=== PATIENT | female | born 1960 | race Hispanic/Latino ===

== ENCOUNTER 2019-08-11 15:04 | Emergency (ER) | payer OTHER ==
[~2019-08-11] VITALS: Ht 157.5 cm; Wt 84.4 kg
--- OUTSIDE RECORDS SUMMARY | 2019-08-11 15:08 | XMS REPORT | Clinical Summary ---
Author Author [facility] Address Unknown Phone Unavailable Care Team Providers Care Coordinator Of Placement Name Role Phone Jonnie Irvin PCP Allergies No Known Allergies Medications End Date Status Medication Sig Dispensed Refills Start Date Active sitaGLIPtin-metFORMIN Take 1 tablet 0 (JANUMET) 50-1,000 mg per by mouth 2 tablet (two) times daily with breakfast and dinner. Active lisinopril Take 10 mg by 0 (PRINIVIL,ZESTRIL) 10 MG mouth daily. tablet Active ezetimibe-simvastatin Take 1 tablet 0 (VYTORIN) 10-10 mg per by mouth tablet nightly. Active liraglutide 0.6 mg/0.1 mL Inject 0 (18 mg/3 mL) PnIj subcutaneousl y. Active hydrochlorothiazide Take 12.5 mg 0 (MICROZIDE) 12.5 mg by mouth capsule every morning. Active Problems Problem Noted Date Abdominal pain 09/14/2016 Diarrhea 09/14/2016 Diabetes mellitus, type 2 09/14/2016 Hyperlipidemia 09/14/2016 Atypical chest pain 09/14/2016 Immunizations Name Dates Previously Given Next Due Influenza Three-TIV PF 5+ 09/14/2016 YR Family History Medical History Relation Name Comments Diabetes Father Hypertension Father Kidney disease Father Relation Name Status Comments Father Social History Date Tobacco Use Types Packs/Day Years Used Current Some Day Smoker Alcohol Use Drinks/Week oz/Week Comments Yes 3 Glasses of 1.8 States twice a month socially wine Sex Assigned at Date Recorded Not on file Industry Job Start Date Occupation Not on file Not on file Not on file Travel End Travel History Travel Start No recent travel history available. Last Filed Vital Signs Not on file Plan of Treatment Not on file Results Not on fileafter 08/10/2018 Insurance Payer Benefit Subscriber ID Type Phone Address Plan / Group CIGNA - MGD CARE CIGNA xxxxxxxxxxx HMO/POS HMO/POS/OP EN ACCESS Advance Directives For more information, please contact: [address] [address] Date Inactivated Comments Code Status Date Activated 09/16/2016 1:05 AM Full Code 09/14/2016 3:17 AM This code status was determined by: Patient
--- OUTSIDE RECORDS SUMMARY | 2019-08-11 15:08 | XMS REPORT | Clinical Summary ---
Author Author [facility] Address Unknown Phone Unavailable Care Team Providers Care Welding Technician Name Role Phone Jonnie Irvin MD PCP Allergies No Known Allergies Medications End Date Status Medication Sig Dispensed Refills Start Date Active JANUMET 50-1,000 mg per Take 1 tablet 0 tablet by mouth 2 8 (two) times a day with meals. Active hydroCHLOROthiazide Take 12.5 mg 0 (MICROZIDE) 12.5 mg by mouth 8 capsule every morning. Active liraglutide (VICTOZA) 0.6 Inject 1.2 mg 0 mg/0.1 mL (18 mg/3 mL) under the pen injector skin nightly. Active ezetimibe/simvastatin Take 1 tablet 0 (VYTORIN 10-20 ORAL) by mouth daily. 01/03/2019 Discontinued (Med List Cleanup) meloxicam (MOBIC) 15 mg Take 1 tablet 30 tablet 11 tablet (15 mg total) 8 by mouth daily. 02/02/2019 Discontinued (Med List Cleanup) traMADol (ULTRAM) 50 mg Take 1 tablet 15 tablet 0 tablet (50 mg total) 9 by mouth every 6 (six) hours as needed for moderate pain for up to 30 days. Take with food 01/27/2019 methylPREDNISolone Take 1 tablet 21 tablet 0 (MEDROL DOSEPAK) 4 mg (4 mg total) 9 tablet by mouth See Admin Instructions for 5 days. Use as directed by package instructions Active Problems Problem Noted Date Contusion of right hand 03/14/2019 Aftercare following surgery 02/02/2019 Trigger finger, left index finger 07/10/2018 Trigger finger, right ring finger 07/10/2018 Carpal tunnel syndrome of right wrist 07/10/2018 Encounters Care Team Description Date Type Specialty Siff, River E., MD Trigger finger, right ring finger (Primary Dx); Carpal tunnel syndrome of right wrist; Trigger finger, left index finger 04/19/2019 Office Visit Orthopedic Surgery River Fam MD Carpal tunnel syndrome of right wrist (Primary Dx); Trigger finger, right ring finger; Aftercare following surgery; Contusion of right hand, initial encounter 03/15/2019 Office Visit Orthopedic Surgery Madeline Argueta PA Aftercare (Primary Dx); Trigger finger, right ring finger; Carpal tunnel syndrome of right wrist 02/09/2019 Office Visit Orthopedic Surgery River Fam MD Trigger finger, left index finger (Primary Dx); Carpal tunnel syndrome of right wrist; Trigger finger, right ring finger; Aftercare following surgery 02/02/2019 Office Visit Orthopedic Surgery Joselyn Verduzco MA 01/22/2019 Telephone Orthopedic Surgery Vincenzo Bradshaw MD Jatzlau, Amybeth, APRN 01/19/2019 Anesthesia Orthopedic Surgery Event River Fam MD RELEASE, CARPAL TUNNEL 01/19/2019 Surgery Orthopedic Surgery River Fam MD 01/19/2019 Hospital Orthopedic Surgery Encounter Madeline Argueta PA Trigger finger, right ring finger (Primary Dx); Carpal tunnel syndrome of right wrist 01/18/2019 Orders Only Orthopedic Surgery River Fam MD Preop testing (Primary Dx) 01/03/2019 Pre-Admit Pre-Admission Testing Testing Appointment River Fam MD Trigger finger, right ring finger (Primary Dx); Trigger finger, left index finger; Carpal tunnel syndrome of right wrist 01/03/2019 Office Visit Orthopedic Surgery Madiha Young RN Bilateral carpal tunnel syndrome (Primary Dx) 12/11/2018 Telephone Orthopedic Surgery after 08/10/2018 Family History Medical History Relation Name Comments No Known Problems Father No Known Problems Mother Relation Name Status Comments Father Mother Social History Date Tobacco Use Types Packs/Day Years Used Never Smoker Smokeless Tobacco: Never Used Drinks/Week oz/Week Comments Alcohol Use occasionally Yes Sex Assigned at Date Recorded Not on file Industry Job Start Date Occupation Not on file Not on file Not on file Travel End Travel History Travel Start No recent travel history available. Last Filed Vital Signs Reading Time Taken Comments Vital Sign 113/67 01/19/2019 11:00 AM TECHNICAL ADJUSTER Blood Pressure 97 01/19/2019 11:00 AM TECHNICAL ADJUSTER Pulse 36.9 C (98.4 F) 01/19/2019 10:20 AM TECHNICAL ADJUSTER Temperature 25 01/19/2019 11:00 AM TECHNICAL ADJUSTER Respiratory Rate 97% 01/19/2019 11:00 AM TECHNICAL ADJUSTER Oxygen Saturation - - Inhaled Oxygen Concentration 86.9 kg (191 lb 8 oz) 01/19/2019 8:21 AM TECHNICAL ADJUSTER Weight 157.5 cm (5' 2") 01/19/2019 8:21 AM TECHNICAL ADJUSTER Height 35.03 01/19/2019 8:21 AM TECHNICAL ADJUSTER Body Mass Index Plan of Treatment Health Maintenance Due Date Last Done Comments CERVICAL CANCER SCREENING 1981 BREAST CANCER SCREENING 2010 COLONOSCOPY SCREENING 2010 SHINGLES VACCINES (#1) 2010 INFLUENZA VACCINE 06/14/2019 Procedures Comments Procedure Name Priority Date/Time Associated Diagnosis AL INJECT TENDON Routine 02/02/2019 Trigger finger, left SHEATH/LIGAMENT 1:30 PM CDT index finger RELEASE, TRIGGER FINGER 01/19/2019 Trigger finger, right 9:43 AM TECHNICAL ADJUSTER ring finger Carpal tunnel syndrome of right wrist Case Notes "NAME ALERT" Special Needs "NAME ALERT" RELEASE, CARPAL TUNNEL 01/19/2019 Trigger finger, right 9:43 AM TECHNICAL ADJUSTER ring finger Carpal tunnel syndrome of right wrist Case Notes "NAME ALERT" Special Needs "NAME ALERT" POC GLUCOSE Routine 01/19/2019 9:10 AM TECHNICAL ADJUSTER ECG PRE/POST OP Routine 01/03/2019 Preop testing 3:33 PM TECHNICAL ADJUSTER ESTIMATED GFR Routine 01/03/2019 3:28 PM TECHNICAL ADJUSTER BASIC METABOLIC PANEL Routine 01/03/2019 Preop testing 3:28 PM TECHNICAL ADJUSTER EMG Routine 12/28/2018 Bilateral carpal tunnel 2:17 PM TECHNICAL ADJUSTER syndrome after 08/10/2018 Results * Hand/Upper Extremity Injection/Arthrocentesis: L index finger, L index A1 (02/02/2019 1:30 PM CDT) [facility]06[facility]2019 11:52 AM Hand/Upper Extremity Injection/Arthrocentesis: L index finger, L index A1 Date/Time: 02/02/2019 2:13 PM Consent given by: patient Site marked: site marked Timeout: Immediately prior to procedure a time out was called to verify the correct patient, procedure, equipment, print support specialist and site/side marked as required Supporting Documentation Indications: pain and therapeutic Procedure Details Condition: trigger finger Site: L index finger Location: - L index A1 Preparation: Patient was prepped and draped in the usual sterile fashion Right side: Needle size: 27 G Left side: Needle size: 27 G Approach: anterior Left index finger medications administered: 6 mg betamethasone acetate & sodium phosphate 6 mg/mL; 1 mL lidocaine 10 mg/mL (1 %) Patient tolerance: patient tolerated the procedure well with no immediate complications Injection Type: tendon sheath Platelet Rich Plasma Used: no PRP Used Fluoroscopic Needle Guidance Used: no fluoroscopic needle guidance * POC glucose (01/19/2019 9:10 AM TECHNICAL ADJUSTER) POC glucose 128 (H) 65 - 99 mg/dL [facility] Comment: [facility] Notified RN HOSPITAL Meter ID: [id number] Diesel Powerplant Mechanic Helper: Mahad Grimm Specimen Performing Organization Address City/State/[facility] Phone Number [facility] DEPART[facility] OF [address] [place] [address] PATHOLOGY AND GENOMIC MEDICINE [facility] [address] [place] [address] * ECG Pre/Post Op (01/03/2019 3:33 PM TECHNICAL ADJUSTER) Ventricular 83 [facility] rate Atrial rate 83 [facility] AL interval 160 [facility] QRSD interval 90 [facility] QT interval 406 [facility] QTC interval 477 [facility] P axis 1 46 [facility] QRS axis 1 -10 [facility] T wave axis 39 [facility] EKG impression Normal sinus rhythm-Possible [facility] Inferior infarct (cited on or before 13-JUN-2012)-Cannot rule out Anterior infarct as cited before-Abnormal ECG-In automated comparison with ECG of 28-DEC-2012 13:06,-No significant change was found- Specimen Narrative Performed At Performing Organization Address City/State/Zipcode Phone Number [facility] [address] [place] [address] * Estimated GFR (01/03/2019 3:28 PM TECHNICAL ADJUSTER) Pathologist [facility] Estimated GFR >=90 mL/min/1.73 m2 [facility] Comment: [facility] rpretation G1 >=90 Normal or high G2 60-89Mildly decreased [id number] Mildly to moderately decreased [id number] Moderately to severely decreased G4 15-29Severely decreased G5 <15Kidney failure The eGFR was calculated using the Chronic Kidney Disease Epidemiology Collaboration (CKD-EPI) equation. Interpretation is based on recommendations of the National Kidney Foundation-Kidney Disease Outcomes Quality Initiative (NKF-KDOQI) published in 2014. Specimen Plasma specimen Performing Organization Address [facility] Phone Number [facility] [place] [address] PATHOLOGY AND GENOMIC MEDICINE [address] * Basic metabolic panel (01/03/2019 3:28 PM TECHNICAL ADJUSTER) [facility] Sodium 142 135 - 148 mEq/L [facility] Potassium 3.6 3.5 - 5.0 mEq/L [facility] Chloride 100 98 - 112 mEq/L [facility] CO2 26 24 - 31 mEq/L [facility] Anion gap 16@ANIO (H) 7 - 15 mEq/L [facility] BUN 10 6 - 20 mg/dL [facility] Creatinine 0.67 0.50 - 0.90 mg/dL [facility] Glucose 180 (H) 65 - 99 mg/dL [facility] Calcium 9.8 8.3 - 10.2 mg/dL [facility] Specimen Plasma specimen Performing Organization Address City/[facility]/Zipcode Phone Number [facility] DEPARTMENT OF [address] [place] [address] PATHOLOGY AND GENOMIC MEDICINE [address] * EMG general request (12/28/2018 2:17 PM TECHNICAL ADJUSTER) Impressions Performed At The patient comes in with bilateral hand pain and a history of bilateral carpal tunnel decompression.She comes in for an EMG study of both arms 1) Motor latencies, amplitudes and velocities are normal with decreased compound motor action potential of the right median nerve 2) F Wave responses are normal 3) Sensory responses are normal except minimal delay of right median palmar latency and decreased sensory nerve action potential of the right median nerve compared to the left 4) Intramuscular recordings of the bilateral arms show no acute or chronic denervation The study suggests: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 [facility] Department of Neurology [address] Office: [phone] Narrative Performed At NERVE CONDUCTION AND ELECTROMYOGRAPHY REPORT [facility]; [place], [place] [address]; Name:Jocelin Tyson Date of Procedure: 12/28/18 Sex:female Date of : 1960 Referring Physician: River Fam MD Ht: 5 foot 2 wt: 192 temp: 31/32 Nerve Conduction(Latencies in msec, Amplitudes uV, Distance cm, Velocity M/Sec) Right Motor Nerves Dist. Lat. Prox lat. D. amp. P. Amp.Dist. Velocity Right Median3.97.76.3 5.820 53 Right Ulnar (below elb) 2.84.710.3 9.512 63 Right Ulnar (across elb) 6.4 8.312 63 Right Radial2.36.15.8 5.322 54 Right Median F Wave 26.6 Right Ulnar F Wave 26 Right Sensory Nerves Dist. Lat. Prox lat. Dist. amp. Prox Amp. Distance Velocity Right Median Palmar 2.3* 71 8.0 Right Median Digital 3.3 20 13.0 Right Ulnar2.8 18 11.0 Right Super. Radial 2.3 47 10.0 Left Motor Nerves Dist. Lat. Prox lat. D. amp. P. Amp.Dist. Velocity Left Median3.77.38.9 8.821 58 Left Ulnar (below elb) 3.14.96.1 5.810 55 Left Ulnar (across elb) 7.2 5.312.5 56 Left Radial2.65.87.8 6.321.5 55 Left Median F Wave 26 Left Ulnar F Wave 28 Left Sensory Nerves Dist. Lat. Prox lat. Dist. amp. Prox Amp. Distance Velocity Left Median Palmar 2.2 140 8.0 Left Median Digital 3.0 34 13.0 Left Ulnar2.9 17 11.0 Left Super. Radial 2.4 50 10.0 Electromyography (Motor Unit in mV; H=High; L=Low; P=Polyphasic; NS=Non-specific) Right ArmFibs. Pos. Waves Fasc. PolyphasiaMotor UnitsRecruitment Deltoid wnl wnlwnl wnlwnlwnl Biceps wnl wnlwnl wnlwnlwnl Triceps wnl wnlwnl wnlwnlwnl Brachioradialis wnl wnlwnl wnlwnlwnl lst D. Interosseous wnl wnlwnl wnlwnlwnl Left ArmFibs. Pos. Waves Fasc. PolyphasiaMotor UnitsRecruitment Deltoid wnl wnlwnl wnlwnlwnl Biceps wnl wnlwnl wnlwnlwnl Triceps wnl wnlwnl wnlwnlwnl Brachioradialis wnl wnlwnl wnlwnlwnl lst D. Interosseous wnl wnlwnl wnlwnlwnl after 08/10/2018 Insurance Type Payer Benefit Subscriber ID Effective Phone Address Plan / Dates Group O CIGNA CIGNA OPEN xxxxxxxxxxx 2011-P ACCESS/NET resent WORK Advance Directives For more information, please contact: [phone] Patient Meat Supervisor Explanation Type Date Recorded Advance Directives, 01/19/2019 6:31 AM Living Will and Medical Power of Personal Caregiver
--- OUTSIDE RECORDS SUMMARY | 2019-08-11 15:08 | XMS REPORT ---
Author [facility] Address Unknown Phone Unavailable Care Team Providers Care Warp Starter Name Role Phone Unavailable Unavailable Problems This patient has no known problems. Allergies, Adverse Reactions, Alerts This patient has no known allergies or adverse reactions. Medications This patient has no known medications. Results Test Description Test Time Test Comments Text Results Atomic Results Result Comments RAD, CHEST, 2 VIEWS 2017-12-21 11:55:00 Reason for Exam:->[id number] FINAL REPORT Chest 2 views 12/21/2017 11:54 AM CLINICAL HISTORY: [id number] COMPARISON: 09/14/2016 FINDINGS: The lungs are clear, save for widely scattered subcentimeter granulomas. Cardiomediastinal contours are within normal limits. The central pulmonary vasculature is not engorged. The visualized skeleton is intact. IMPRESSION: No acute radiographic abnormalities. Signed: Dudley Aguilar Verified Date/Time: 12/21/2017 11:55:27 Reading Location: [facility] Radiology Reading Room
[2019-08-11] MEDS ORDERED: TETANUS/DIPHTHERIA TOX ADULT 0.5 ML SYR IM STA (15:28)
[2019-08-11] MEDS ORDERED: KETOROLAC TROMETHAMINE 30 MG/ML VIAL IM STA (15:30)
[2019-08-11] MEDS ORDERED: KETOROLAC TROMETHAMINE 60 MG/2 ML VIAL ONE (15:35)
[2019-08-11] MEDS ORDERED: TETANUS/DIPHTHERIA TOX ADULT 0.5 ML SYR ONE (15:51)
--- NOTE | 2019-08-11 17:25 | Diagnostic Imaging Report ---
Left ankle radiographs 3 views, left foot radiograph 3 views HISTORY: Pain. COMPARISON: None available. FINDINGS: Bones: Acute minimally displaced fracture of the fifth digit proximal phalangeal shaft.. Joints: The joint spaces are well-maintained. Soft tissues: Achilles and plantar calcaneal enthesophytes. Mild soft tissue swelling along the fifth phalanx. IMPRESSION: Acute minimally displaced fracture of the fifth digit proximal phalangeal shaft.. Signed by: Nicholas Martin DO on 08/11/2019 5:21 PM
[2019-08-11 17:38] VITALS: BP 132/79
== END 2019-08-11 17:55 | disposition home or self-care (01) ==
LOC: FSED 15:04
DX: S92.512A Displaced fracture of proximal phalanx of left lesser toe(s), initial encounter for closed fracture (principal); W11.XXXA Fall on and from ladder, initial encounter; Y92.008 Other place in unspecified non-institutional (private) residence as the place of occurrence of the external cause; E11.9 Type 2 diabetes mellitus without complications
CPT/HCPCS: 73610; 73630; 90471; 90714; 96372; 99283; J1885 ×2